=== PATIENT | female | born 1985 ===

== ENCOUNTER 2017-06-15 08:45 | Emergency (ER) | payer OTHER ==
[2017-06-15 08:51] VITALS: BP 103/66; PULSE 77; TEMP 98; O2SAT 98
[2017-06-15 08:52] VITALS: BMI 26.0
--- NOTE | 2017-06-15 09:50 | ED PDOC ---
HPI: Female Pain Time Seen by Provider: 06/15/17 09:11 Chief Complaint (Nursing): Female Genitourinary Chief Complaint (Provider): Lower abdominal pain History Per: Patient History/Exam Limitations: no limitations Additional Complaint(s): Pt presents with lower abdominal pain X 3 days, had vaginal bleeding with clots 2 days ago that has since resolved. Denies fever, nausea, vomiting, dysuria, hematuria. Past Medical History Reviewed: Nursing Documentation, Vital Signs Vital Signs: Last Vital Signs Temp 98 F 06/15/17 08:51 Pulse 77 06/15/17 08:51 Resp BP 103/66 06/15/17 08:51 Pulse Ox 98 06/15/17 08:51 - Medical History PMH: No Chronic Diseases - Surgical History Surgical History: No Surg Hx - Family History Family History: States: Unknown Family Hx - Social History Current smoker - smoking cessation education provided: No - Immunization History Hx Tetanus Toxoid Vaccination: No Hx Influenza Vaccination: No Hx Pneumococcal Vaccination: No - Home Medications Home Medications: Ambulatory Orders Medication Instructions Recorded Nitrofurantoin Macrocrystals 100 mg PO BID #13 cap 06/15/17 [Macrobid] Vit Calc,Iron,Folic 1 each PO DAILY #30 tablet 06/15/17 [ Vitamins] - Allergies Allergies/Adverse Reactions: Allergies Allergy/AdvReac Type Severity Reaction Status Date / Time No Known Allergies Allergy Verified 06/15/17 09:18 Review of Systems Constitutional: Negative for: Fever, Chills Cardiovascular: Negative for: Chest Pain, Palpitations Respiratory: Negative for: Cough, Shortness of Breath Gastrointestinal: Positive for: Abdominal Pain. Negative for: Nausea, Vomiting , Diarrhea Genitourinary Female: Positive for: Vaginal Bleeding (Resolved). Negative for: Dysuria, Hematuria, Vaginal Discharge Musculoskeletal: Negative for: Back Pain Skin: Negative for: Rash, Lesions Neurological: Negative for: Headache Physical Exam - Reviewed Nursing Documentation Reviewed: Yes Vital Signs Reviewed: Yes - Physical Exam Appears: Positive for: Well, No Acute Distress Skin: Positive for: Normal Color, Warm, Dry Eye Exam: Positive for: Normal appearance, EOMI, PERRL Cardiovascular/Chest: Positive for: Regular Rate, Rhythm Respiratory: Positive for: Normal Breath Sounds Gastrointestinal/Abdominal: Positive for: Bowel Sounds, Soft, Tenderness (LLQ). Negative for: Mass, Distended, Guarding, Rebound Extremity: Positive for: Normal ROM Neurologic/Psych: Positive for: Alert, Oriented - Laboratory Results Result Diagrams: 06/15/17 11:00 06/15/17 11:00 - ECG O2 Sat by Pulse Oximetry: 98 Medical Decision Making Medical Decision Makin yo female with LLQ pain and resolved vaginal bleeding. - labs - pelvic ultrasound - Tylenol Accession No. : [id number] Patient Name / ID : LOBO WASHINGTON / [id number] Exam Date : 06/15/2017 12:33:23 ( Approved ) Study Comment : Sex / Age : F / 32Y Creator : Jeff Rm MD Dictator : Jeff Rm MD Assistant Baseball Coach : Windows System Admin : Jeff Rm MD Approver2 : Report Date : 06/15/2017 12:16:19 My Comment : PROCEDURE: OB Pelvic Ultrasound HISTORY: LLQ pain LMP: 04/08/2017 COMPARISON: Pelvic ultrasound dated 06/26/2009 FINDINGS: UTERUS: Gestational sac: Single intrauterine gestation. In sac diameter 0.0 cm compatible with estimated gestational age of 9 weeks, 2 days. Yolk sac: Measures 0.4 cm. pole: [place]-rump length measures 3.0 cm compatible with estimated gestational age of 9 weeks, 6 days. Heart rate: 178 bpm. age (Ultrasound estimated): 9 weeks, 4 days [place]-gestational hemorrhage: None. Date of delivery (Ultrasound estimated) : 01/14/2018 Uterus measures 8.9 x 6.0 x 7.5 cm. Anteverted. Normal in size and appearance. Fibroid measuring 2.8 x 2.8 x 2.5 cm. CERVIX: Measures 3.4 cm. Long and closed. No cervical abnormality seen. RIGHT OVARY: Measures 2.4 x 2.0 x 2.2 cm. Cyst measuring 1.3 x 1.2 x 1.0 cm. Normal flow. LEFT OVARY: Measures 2.7 x 1.4 x 2.1 cm. No solid mass. Normal flow. FREE FLUID: None. OTHER FINDINGS: None. IMPRESSION: Single viable intrauterine gestation with average ultrasound age of 9 weeks, 4 days. heart rate 178 beats per minute. Cervix long and closed. No free fluid. Uterine fibroid measuring 2.8 cm. Disposition - Clinical Impression Clinical Impression: Threatened , UTI in - Disposition [facility] Disposition: Routine/Home Disposition Time: 13:12 Condition: STABLE Prescriptions: Nitrofurantoin Macrocrystals [Macrobid] 100 mg PO BID #13 cap Vit Calc,Iron,Folic [ Vitamins] 1 each PO DAILY #30 tablet Instructions: Threatened Miscarriage, Urinary Tract Infection, Adult (DC) Forms: [facility] (Belarusian) Print Language: UKRAINIAN
[2017-06-15 11:28] LABS: BASO # 0.1 K/uL (0.0-0.2); BASO % 1.3 % (0.0-2.0); EOS # 0.1 K/uL (0.0-0.7); LYMPH # 1.8 K/uL (1.0-4.3); LYMPH % 31.4 % (20.0-40.0); MEAN CORPUSCULAR HEMOGLOBIN 29.9 pg (27.0-31.0); MEAN CORPUSCULAR HGB CONC 34.6 g/dL (33.0-37.0); MEAN PLATELET VOLUME 8.9 fl (7.2-11.7); MONO # 0.6 K/uL (0.0-0.8); MONO % 10.4 % (0.0-10.0); NEUT # 3.2 K/uL (1.8-7.0); NEUT % 55.9 % (50.0-75.0); NRBC % 0.1 % (0.0-0.0); RBC 4.01 Mil/uL (3.80-5.20); RED CELL DISTRIBUTION WIDTH 13.3 % (11.5-14.5); WHITE BLOOD COUNT 5.7 K/uL (4.8-10.8)
[2017-06-15 11:38] LABS: MEAN CELL VOLUME 86.5 fl (81.0-99.0)
[2017-06-15 11:40] LABS: INR 1.1 (0.9-1.2); PARTIAL THROMBOPLASTIN TIME 33.6 Seconds (25.6-37.1); PROTHROMBIN TIME 11.8 Seconds (9.8-13.1)
[2017-06-15 11:43] LABS: SQUAMOUS EPITHIAL 7 /hpf (0-5); URINE BACTERIA OCC (<OCC); URINE BILIRUBIN NEGATIVE (NEGATIVE); URINE BLOOD SMALL (NEGATIVE); URINE CLARITY CLOUDY (Clear); URINE COLOR YELLOW (YELLOW); URINE GLUCOSE (UA) NEG (Normal); URINE LEUKOCYTE ESTERASE NEG Leu/uL (Negative); URINE PROTEIN 30 mg/dL (NEGATIVE); URINE UROBILINOGEN 0.2-1.0 mg/dL (0.2-1.0)
[2017-06-15 11:52] LABS: ALB/GLOB RATIO 1.1 (1.0-2.1); ALBUMIN 3.6 g/dL (3.5-5.0); ALT/SGPT 32 U/L (9-52); AST/SGOT 19 U/L (14-36); BLOOD UREA NITROGEN 8 mg/dl (7-17); GFR AFRICAN-AMERICAN > 60; GFR NON-AFRICAN AMERICAN > 60
--- NOTE | 2017-06-15 12:17 | US ---
PROCEDURE: OB Pelvic Ultrasound HISTORY: LLQ pain LMP: 04/08/2017 COMPARISON: Pelvic ultrasound dated 06/26/2009 FINDINGS: UTERUS: Gestational sac: Single intrauterine gestation. In sac diameter 0.0 cm compatible with estimated gestational age of 9 weeks, 2 days. Yolk sac: Measures 0.4 cm. pole: [place]-rump length measures 3.0 cm compatible with estimated gestational age of 9 weeks, 6 days. Heart rate: 178 bpm. age (Ultrasound estimated): 9 weeks, 4 days [place]-gestational hemorrhage: None. Date of delivery (Ultrasound estimated) : 01/14/2018 Uterus measures 8.9 x 6.0 x 7.5 cm. Anteverted. Normal in size and appearance. Fibroid measuring 2.8 x 2.8 x 2.5 cm. CERVIX: Measures 3.4 cm. Long and closed. No cervical abnormality seen. RIGHT OVARY: Measures 2.4 x 2.0 x 2.2 cm. Cyst measuring 1.3 x 1.2 x 1.0 cm. Normal flow. LEFT OVARY: Measures 2.7 x 1.4 x 2.1 cm. No solid mass. Normal flow. FREE FLUID: None. OTHER FINDINGS: None. IMPRESSION: Single viable intrauterine gestation with average ultrasound age of 9 weeks, 4 days. heart rate 178 beats per minute. Cervix long and closed. No free fluid. Uterine fibroid measuring 2.8 cm.
== END 2017-06-15 14:40 | disposition home or self-care (01) ==
LOC: H.ER 08:45
DX: O20.0 Threatened abortion (principal); O23.41 Unspecified infection of urinary tract in pregnancy, first trimester; Z3A.09 9 weeks gestation of pregnancy

== ENCOUNTER 2018-01-08 09:32 | Inpatient (IN) | payer MEDICAID, SELFPAY ==
[2018-01-08 10:39] VITALS: BMI 30.7
[2018-01-08] MEDS ORDERED: OXYTOCIN/0.9 % NS 20 UNIT/1,000 ML BAG IV ONE (10:41)
[2018-01-08] MEDS ORDERED: Oxytocin 30 UNIT 30 UNITS/500 ML BAG IV ONE (10:41)
[2018-01-08] MEDS ORDERED: Lidocaine 1% Inj (20ml) ONE (10:54)
[2018-01-08 11:37] LABS: BASO % 0.5 % (0.0-2.0); EOS % 0.6 % (0.0-4.0); HEMOGLOBIN 13.5 g/dL (12.0-16.0); LYMPH # 2.5 K/uL (1.0-4.3); LYMPH % 33.5 % (20.0-40.0); MEAN CELL VOLUME 93.1 fl (81.0-99.0); MEAN CORPUSCULAR HEMOGLOBIN 30.4 pg (27.0-31.0); MEAN CORPUSCULAR HGB CONC 32.7 g/dL (33.0-37.0); MONO # 0.7 K/uL (0.0-0.8); MONO % 9.3 % (0.0-10.0); NEUT # 4.1 K/uL (1.8-7.0); NEUT % 56.1 % (50.0-75.0); NRBC % 0.1 % (0.0-0.0); RBC 4.45 Mil/uL (3.80-5.20); WHITE BLOOD COUNT 7.3 K/uL (4.8-10.8)
[2018-01-08] MEDS ORDERED: Benzocaine/Menthol SPRAY TOP PRN ×2 (12:08→13:52)
--- NOTE | 2018-01-08 13:14 | OBHP ---
Datetime: 01/08/2018 13:12 Admit Comment, IP Provider: The patient was seen with the resident I agree with the note
--- NOTE | 2018-01-08 13:16 | OBDS ---
DELIVERY PERSONNEL Delivery Doctor: Dr Hawk Psychologist Personnel: MBorreoRN/JMcCartyRN Resident: Dr Raegan Salazar(OB Fellow) MATERNAL INFORMATION Delivery Anesthesia: None Medications in Delivery: Pitocin Placenta Cultured: No Maternal Complications: None LABOR SUMMARY EDC: 01/13/2018 00:00 No. Babies in Womb: 1 Attempted: No Labor Anesthesia: None LABOR INFORMATION Reason for Induction: Not Applicable Onset of Labor: 01/08/2018 05:00 Complete Dilatation: 01/08/2018 10:45 Oxytocin: N/A Group B Beta Strep: Negative Antibiotics # of Doses: n/a Antibiotics Time of Last Dose: n/a Steroids Given: None Reason Steroids Not Administered: Not Applicable MEMBRANES Membranes Rupture Method: Spontaneous Rupture of Membranes: 01/08/2018 11:00 Length of Rupture (hrs): 0.05 Amniotic Fluid Color: Light Meconium Amniotic Fluid Amount: Moderate Amniotic Fluid Odor: Normal STAGES OF LABOR Stage 1 hrs: 5 Stage 1 min: 45 Stage 2 hrs: 0 Stage 2 min: 18 Stage 3 hrs: 0 Stage 3 min: 5 Total Time in Labor hrs: 6 Total Time in Labor min: 8 VAGINAL DELIVERY Episiotomy: None Laceration Extension: N/A Laceration Type: None Laceration Repair: Not Applicable Initial Vag Sponge Count: Laps=5 and one without ring Final Vag Sponge Count: laps=5 and one without ring Initial Vag Sharps Count: n/a Final Vag Sharps Count: n/a Sponge Count Correct: Yes Sharps Count Correct: N/A Count Comment: laps count correct BABY A INFORMATION Delivery Date/Time: 01/08/2018 11:03 Method of Delivery: Vaginal Born in Route : No : N/A Forceps: N/A Vacuum Extraction: N/A Shoulder Dystocia : No SHOULDER DYSTOCIA BABY A Infant Delivery Date/Time: 01/08/2018 11:03 PRESENTATION/POSITION BABY A Presentation: Cephalic Cephalic Presentation: Vertex Breech Presentation: N/A PLACENTA INFORMATION BABY A Placenta Delivery Time : 01/08/2018 11:08 Placenta Method of Delivery: Spontaneous Placenta Status: Delivered SCORES BABY A Heart Rate 1 min: >100 bpm Resp Effort 1 min: Good Cry Reflex Irritability 1 min: Cough or Sneeze or Pulls Away Muscle Tone 1 min: Active Motion Color 1 min: Body [place], Extremities Blue Resuscitation Effort 1 min: Tactile Stimulation SCORE 1 MIN: 9 Heart Rate 5 min: >100 bpm Resp Effort 5 min: Good Cry Reflex Irritability 5 min: Cough or Sneeze or Pulls Away Muscle Tone 5 min: Active Motion Color 5 min: Body [place], Extremities Blue Resuscitation Effort 5 min: N/A SCORE 5 MIN: 9 INFANT INFORMATION BABY A Gestational Age at Delivery: 39.3 Gestational Status: Term Infant Outcome : Liveborn Condition : Stable Sex: Male IDENTIFICATION/MEDS BABY A ID Band Number: [id number] ID Band Location: Left Leg; Left Arm Vitamin K Given : Not Given Erythromycin Given: Not Given WEIGHT/LENGTH BABY A Infant Birthweight (gms): 2860 Infant Weight (lb): 6 Weight (oz): 5 CORD INFORMATION BABY A No. Cord Vessels: 3 Nuchal Cord : N/A Nuchal Cord Other: n/a True Knot: n/a Infant Cord pH Baby Arterial: n/a Cord pH Baby Venous: n/a Cord Blood Taken: Yes Banking/Donate Info: n/a Infant Suction: None ASSESSMENT BABY A Complications: None Physical Findings at Delivery: Within Normal Limits Infant Respirations: Appears Normal Bmx Rider/ALS Called : No Infant Care By: Marcus Transferred To: Remains with Mother
[2018-01-09 18:01] LABS: BASO % 0.6 % (0.0-2.0); EOS # 0.1 K/uL (0.0-0.7); EOS % 0.9 % (0.0-4.0); HEMOGLOBIN 11.9 g/dL (12.0-16.0); LYMPH # 2.8 K/uL (1.0-4.3); LYMPH % 34.8 % (20.0-40.0); MEAN CELL VOLUME 90.6 fl (81.0-99.0); MEAN CORPUSCULAR HGB CONC 33.2 g/dL (33.0-37.0); MEAN PLATELET VOLUME 9.3 fl (7.2-11.7); MONO # 0.7 K/uL (0.0-0.8); MONO % 8.7 % (0.0-10.0); NEUT # 4.4 K/uL (1.8-7.0); NRBC % 0.1 % (0.0-0.0); RBC 3.95 Mil/uL (3.80-5.20); RED CELL DISTRIBUTION WIDTH 14.8 % (11.5-14.5)
--- NOTE | 2018-01-10 08:25 | OBPPN ---
Datetime: 01/10/2018 05:48 PP Pain Prov: Within normal limits PP Nausea Prov: Denies PP Flatus Prov: Yes PP BM Prov: No PP Heart Prov: Normal PP Lungs Prov: Normal PP Abdomen/Uterus Prov: Normal PP Lochia Prov: Normal PP Extremities Prov: Normal PP Impression Prov: Normal progression PP Plan Prov: Continue present management; Discharge PP Progress Note Prov: [employer] interpretation services - [id number] 32 y/o PPD 2 s/p seen and examined this AM. Patient reports she is tolerating ambulat on, regular diet, _ pain with medications. Lochia like menses, + flatus, +BM, w/o comp laints. Denies any f/c/n/v/d, chest pain or shortness of breath. VS: stable Gen: laying in bed Cardio: s1s2 RRR Lungs: cResp effort wnl, no wheeze Abd: BS +, fundus @ umbilicus, appropriate tenderness Ext: calves nontender, nonedematous A/P: 32 y/o PPD 2 s/p - encouraged -Ambulation as tolerated encouraged -Ibuprofen as needed for pain -Discharge today Case discussed with attending -ELANA Leiva JP, PGY-1 Vital Signs Provider PP: Reviewed; Within Normal Limits Datetime: 01/09/2018 13:52 PP Breasts Prov: Not Done PP Vulva/Perineum Prov: Not Done PP CVA Tenderness Prov: Not Done PP C/S Incision Prov: Not Applicable PP Progress Prov: Normal IP PP Procedures: None
--- NOTE | 2018-01-10 08:27 | OBDCSUM ---
Datetime: 01/10/2018 05:07 Discharged to, Provider: Home Follow up at, Provider: Your doctor Disch Instr Activity: May be up to bathroom; May be up for meals; May Shower Disch Instr Diet: Regular Discharge Instructions, Provider: Routine instructions given Discharge Diagnosis, Provider: Term Delivered Follow up in weeks, Provider: 4-6 weeks Disch Referrals: None Disch Activity Restrictions: No lifting; Minimize stair-climbing; No sexual activity; Nothing in vag victor manuel - [place], tampons, douche Discharge Comment, Provider: -Continue . -Use Ibuprofen 600mg every 4 hours for mild pain. -Walk as much as you are able. -You may be up to shower, but no lifting, minimize stair climbing. -Nothing in the vagina for 6 weeks ( no tampons nosex). -Follow up with your 's pan puller in 3-5 days. -Follow up with your OB in 4-6 weeks for wound check. Attending addendum: I saw and examined the patient myself at bedside this morning. I reviewed the resident note above and agree with findings and management. DC home today. Krys Rowe MD Contraception after Delivery: Control Pill/Patch
--- NOTE | 2018-01-10 08:28 | OBPPN ---
Datetime: 01/10/2018 05:48 PP Progress Note Prov: Jayla interpretation services - [id number] 32 y/o PPD 2 s/p seen and examined this AM. Patient reports she is tolerating ambulat on, regular diet, _ pain with medications. Lochia like menses, + flatus, +BM, w/o comp laints. Denies any f/c/n/v/d, chest pain or shortness of breath. VS: stable Gen: laying in bed Cardio: s1s2 RRR Lungs: cResp effort wnl, no wheeze Abd: BS +, fundus @ umbilicus, appropriate tenderness Ext: calves nontender, nonedematous A/P: 32 y/o PPD 2 s/p - encouraged -Ambulation as tolerated encouraged -Ibuprofen as needed for pain -Discharge today Case discussed with attending -ELANA Leiva JP, PGY-1 Attending addendum: I saw and examined the patient myself at bedside this morning. I reviewed the resident note above and agree with findings and management. DC home today. Krys Rowe MD
[2018-01-10 19:37] VITALS: BP 114/69; PULSE 82; RESP 18; TEMP 98.3; O2SAT 100
== END 2018-01-10 13:56 | disposition home or self-care (01) | DRG 807 ==
LOC: H.EROB2 09:32 → H.EROB 10:39 → H.L&D 11:17 → H.OB/GYN 13:25
PROVIDERS: ADMIT Obstetrics & Gynecology Gynecology; ATTEND Obstetrics & Gynecology Gynecology
PROC: 10E0XZZ Delivery of Products of Conception, External Approach (ICD-10-PCS; principal; 2018-01-08)
PROC: 4A1HXCZ Monitoring of Products of Conception, Cardiac Rate, External Approach (ICD-10-PCS; 2018-01-08)
DX: O80 Encounter for full-term uncomplicated delivery (principal); Z37.0 Single live birth; Z3A.39 39 weeks gestation of pregnancy